=== PATIENT | male | born 1950 | race Caucasian/White ===

== ENCOUNTER 2016-09-06 05:42 | Outpatient (CLI) | payer BC ==
[~2016-09-06] VITALS: Ht 188 cm; Wt 107.6 kg
[~2016-09-06 05:42] MED LIST: BISO1TAB3 PO; BISO1TAB39; IBUP-30 PO; LISI5TAB14 PO; WARF5TAB PO
[2016-09-06] MEDS ORDERED: BISO5TAB PO (08:16)
[2016-09-06] MEDS ORDERED: CHOL200014 PO (08:16)
[2016-09-06] MEDS ORDERED: WARF3TAB PO (08:16)
== END 2016-09-06 08:46 ==
LOC: PREOP 05:42
PROVIDERS: ATTEND Surgery
DX: Z01.818 Encounter for other preprocedural examination (principal); Z12.11 Encounter for screening for malignant neoplasm of colon

== ENCOUNTER 2016-09-09 07:10 | Day surgery (SDC) | payer BC ==
[~2016-09-09] VITALS: Ht 188 cm; Wt 107.6 kg
[~2016-09-09 07:10] MED LIST changes: +BISO5TAB PO; +CHOL200014 PO; +WARF3TAB PO
[2016-09-09 07:59] VITALS: BP 136/85
[2016-09-09] MEDS ORDERED: NS IV 500 ML 500 ML IV PRN (08:00)
[2016-09-09] MEDS ORDERED: fentaNYL INJECTION 100 MCG/2 ML AMP ONE ×2 (09:25)
[2016-09-09] MEDS ORDERED: MIDAZOLAM 2 MG/2 ML (VERSED) VIAL ONE ×4 (09:25→09:26)
[2016-09-09] MEDS: fentaNYL INJECTION 100 MCG/2 ML AMP IVP PRN ×2 (09:38→09:40)
[2016-09-09] MEDS: MIDAZOLAM 2 MG/2 ML (VERSED) VIAL IVP PRN ×2 (09:39→09:42)
--- NOTE | 2016-09-09 09:40 | History & Physicial ---
History of Present Illness History of Present Illness Reason for visit/HPI to undergo screening colonoscopy. No family history of colon cancer Date of Admission Date Seen by Provider: Sep 09, 2016 Time Seen by Provider: 09:01 I consulted on this patient on 09/09/16 09:38 Attending Physician Cari Marquis MD Admitting Physician Laron Kuo MD Consult Allergies and Home Medications Allergies Coded Allergies: NKANo Known Allergies (Verified Allergy, Mild, 04/02/06) Home Medications Bisoprolol Fumarate 5 Mg Tablet, 5 MG PO DAILY, (Reported) Cholecalciferol (Vitamin D3) 2,000 Unit Tablet, 2,000 UNIT PO DAILY, (Reported) Warfarin Sodium 3 Mg Tablet, 3 MG PO DAILY, (Reported) Past Ifsqtcz-Npsdjk-Dslbkf Hx Patient Social History Marrital Status: Employed/Student: employed Alcohol Use: Rarely Uses Recreational Drug Use: No Smoking Status: Never a Smoker Recent Foreign Travel: No Contact w/other who traveled: No Recent Hopitalizations: No Recent Infectious Disease Expo: No Immunizations Up To Date Tetanus Booster (TDap): Unknown Seasonal Allergies Seasonal Allergies: No Surgeries HX Surgeries: Yes (skin CA removed; rt hip ORIF 2006) Surgeries: Orthopedic Respiratory Hx Respiratory Disorders: Yes (post-op PE 2006) Cardiovascular Hx Cardiovascular Disorders: Yes Cardiac Disorders: Deep Vein Thrombosis, Hypertension Neurological Hx Neurological Disorders: No Reproductive System Hx Reproductive Disorders: No Sexually Transmitted Disease: No HIV/AIDS: No Genitourinary Hx Genitourinary Disorders: No Gastrointestinal Hx Gastrointestinal Disorders: No Musculoskeletal Hx Musculoskeletal Disorders: Yes Musculoskeletal Disorders: Fractures Endocrine Hx Endocrine Disorders: No HEENT HX ENT Disorders: No Cancer Hx Cancer: Yes (basal cell removed from mid chest 1997) Cancer: Skin Psychosocial Hx Psychiatric Problems: No Integumentary HX Skin/Integumentary Disorder: No Blood Transfusions Hx Blood Disorders: No Family Medical History Family Hx: Diabetes mellitus 19 FATHER, Onset:Unknown G8 BROTHER, Onset:Unknown G8 BROTHER, Onset:Unknown G8 BROTHER, Onset:Unknown FH: CAD (coronary artery disease) 19 MOTHER, Onset:Unknown FH: renal cell carcinoma 19 MOTHER, Onset:60 years & older Hypertension 19 MOTHER, Onset:Unknown Neoplasm of central nervous system G8 BROTHER, Onset:Unknown Parkinson's disease 19 MOTHER, Onset:60 years & older Constitutional: no symptoms reported EENTM: no symptoms reported Respiratory: no symptoms reported Cardiovascular: no symptoms reported Gastrointestinal: no symptoms reported Genitourinary: no symptoms reported Musculoskeletal: joint pain Psychiatric/Neurological: No Symptoms Reported Physical Exam Vital Signs Vital Sign - Last 12Hours 09/09/16 07:59 Temp 98.2 Pulse 59 Resp 16 B/P (MAP) 136/85 Pulse Ox 93 O2 Delivery Room Air Capillary Refill : General Appearance: No Apparent Distress HEENT: Normal ENT Inspection Neck: Normal Inspection Respiratory: Lungs Clear Cardiovascular: Regular Rate, Rhythm Gastrointestinal: Non Tender, Soft Rectal: Deferred Extremity: Normal Inspection Neurologic/Psychiatric: Alert, Oriented x3 Skin: Warm/Dry Assessment/Plan Assessment and Plan gentleman for screening colonoscopy. Discussed in detail. We will proceed Problems: CARI MARQUIS MD Sep 09, 2016 9:40 am
--- NOTE | 2016-09-09 09:41 | Conscious Sedation/ASA ---
Conscious Sedation Pre-Proced Time Reviewed: 09:40 ASA Class: 2 Airway Mallampati Classification: (quileute appropriate class) I. II. III, IV Lungs Heart ASA score ASA 1: a normal healthy patient ASA 2: a patient with a mild systemic disease (mid diabetes, controlled hypertension, obesity ASA 3: a patient with a severe systemic disease that limits activity (angina , COPD, prior Myocardial infarction) ASA 4: a patient with an incapacitating disease that is a constant threat to life (CHF, renal failure) ASA 5: a moribund patient not expected to survive 24 hrs. (ruptured aneurysm) ASA 6: a declared brain patient whose organs are being harvested. For emergent operations, add the letter E after the classification Grade 2 Sedation Plan: Discussed options with patient/fam Note The patient is an appropriate candidate to undergo the planned procedure, sedation, and anesthesia. The patient immediately re-assessed prior to indication. CARI MARQUIS MD Sep 09, 2016 9:41 am
--- NOTE | 2016-09-09 10:01 | Discharge Inst-Simple/Standard ---
Discharge Inst-Standard Discharge Medications New, Converted or Re-Newed RX: Other Patient Instructions/Follow Up Plan of Care/Instructions/FU: repeat colonoscopy in 2 years Activity as Tolerated: Yes Discharge Diet: No Restrictions CARI MARQUIS MD Sep 09, 2016 10:01 am
--- NOTE | 2016-09-09 10:01 | Endo Procedure Record ---
Endo Procedure Report Date of Procedure Sep 09, 2016 Surgeon (s) CARI MARQUIS MD Post Procedure/Op Diagnosis 1. sigmoid diverticulosis 2. 4 mm sessile polyp at the mid ascending colon Procedure Performed 1.colonoscopy to cecum 2.snare polypectomy Description of Procedure Anesthesia Type: Conscious Sedation Specimen(s) collected/removed right colon polyp Description of the Procedure Indication for procedure: This gentleman came in for screening colonoscopy. He denied any family history of colon cancer or polyps. Informed consent was obtained after reviewing the procedure in detail. Description of the procedure: He was placed in left lateral decubitus position and his vital signs were monitored. Conscious sedation was achieved using Versed and fentanyl. Digital rectal examination was unremarkable.Colonoscope was then introduced into the rectum and advanced all the cecum. Scope was then withdrawn slowly and the mucosa examined in a systematic fashion. The quality of bowel preparation was excellent. Findings: 1.sigmoid diverticulosis 2. 4 mm sessile polyp at the mid descending colon, that was snared and retrieved. hhe tolerated the procedure well and was taken to the nursing area in a stable condition Impression; Screening colonoscopy. 4 mm right colon polyp excised. Recommend repeating 2 years. Copies To: JESSENIA ZEPEDA MD, XAVIER M MD Sep 09, 2016 10:01 am
[2016-09-09 10:20] VITALS: BP 115/68
[2016-09-09 10:50] VITALS: BP 109/72
[2016-09-09 11:00] VITALS: BP 109/72
== END 2016-09-09 11:00 | disposition home or self-care (01) ==
LOC: ENDO 07:10
PROVIDERS: ATTEND Surgery
DX: Z12.11 Encounter for screening for malignant neoplasm of colon (principal); K63.5 Polyp of colon; K57.30 Diverticulosis of large intestine without perforation or abscess without bleeding; I10 Essential (primary) hypertension; Z86.718 Personal history of other venous thrombosis and embolism

== ENCOUNTER 2017-06-03 21:42 | Inpatient (IN) | payer MEDICARE, OTHER ==
[~2017-06-03] VITALS: Ht 188 cm; Wt 99.3 kg
--- OUTSIDE RECORDS SUMMARY | 2017-06-03 21:48 | XMS REPORT | Continuity of Care Document ---
Author Author [facility] Organization [facility] Address Unknown Phone Unavailable Allergies Active Description Code Type Severity Reaction Onset Reported/Identified Relationship to Patient Clinical Status Yes nKA nKA Mild N/A 03/30/2006 Yes NKANo Known Allergies NKA Miscellaneous Allergy Mild N/A 04/02/2006 Medications There is no data. Problems Date Dx Coded Attending Type Code Diagnosis Diagnosed By 06/09/2014 YOANA WISE MD Ot 401.9 HYPERTENSION NOS 06/09/2014 YOANA WISE MD Ot 415.19 OTH PULMON EMBOLISM/INFARCT 06/09/2014 YOANA WISE MD Ot 787.91 DIARRHEA 06/09/2014 YOANA WISE MD Ot 799.02 HYPOXEMIA 06/09/2014 YOANA WISE MD Ot V10.83 HX-SKIN MALIGNANCY NEC 06/09/2014 YOANA WISE MD Ot V12.51 HX-VENOUS THROMBOSIS EMBOLISM 09/06/2016 CARI MARQUIS MD Ot Z01.818 ENCOUNTER FOR OTHER PREPROCEDURAL EXAMIN 09/06/2016 CARI MARQUIS MD Ot Z12.11 ENCOUNTER FOR SCREENING FOR MALIGNANT NE 09/09/2016 CARI MARQUIS MD Ot I10 ESSENTIAL (PRIMARY) HYPERTENSION 09/09/2016 CARI MARQUIS MD Ot K57.30 DVRTCLOS OF LG INT W/O PERFORATION OR AB 09/09/2016 CARI MARQUIS MD Ot K63.5 POLYP OF COLON 09/09/2016 CARI MARQUIS MD Ot Z12.11 ENCOUNTER FOR SCREENING FOR MALIGNANT NE 09/09/2016 CARI MARQUIS MD Ot Z86.718 PERSONAL HISTORY OF OTHER VENOUS THROMBO 09/10/2016 CARI MARQUIS MD Ot I10 ESSENTIAL (PRIMARY) HYPERTENSION 09/10/2016 CARI MARQUIS MD Ot K57.30 DVRTCLOS OF LG INT W/O PERFORATION OR AB 09/10/2016 CARI MARQUIS MD Ot K63.5 POLYP OF COLON 09/10/2016 CARI MARQUIS MD Ot Z12.11 ENCOUNTER FOR SCREENING FOR MALIGNANT NE 09/10/2016 CARI MARQUIS MD Ot Z86.718 PERSONAL HISTORY OF OTHER VENOUS THROMBO Procedures There is no data. Results There is no data. Encounters ACCT No. Visit Date/Time Discharge Status Pt. Type Provider Facility Loc./Unit Complaint [id number] 09/09/2016 07:10:00 09/09/2016 11:00:00 DIS Outpatient CARI MARQUIS MD [facility] ENDO SCREENING [id number] 09/06/2016 05:42:00 09/06/2016 08:46:00 DIS Outpatient CARI MARQUIS MD [facility] PREOP COLONSCOPY [id number] 06/06/2014 02:04:00 06/09/2014 10:30:00 DIS Inpatient YOANA WISE MD [facility] SURGICAL MULTIPLE PULMONARY EMBOLISM
--- NOTE | 2017-06-03 22:27 | ED Abdominal Pain ---
General Chief Complaint: Abdominal/GI Problems Stated Complaint: LOWER ABD PAIN Nursing Triage Note: LEFT SIDED DULL ABDOMINAL PAIN SINCE THIS AM. DENIES INJURY. Sepsis Screen: No Definite Risk Source of Information: Patient Exam Limitations: No Limitations History of Present Illness Date Seen by Provider: Jun 03, 2017 Time Seen by Provider: 22:25 Initial Comments To ER with left lower quadrant abdominal pain since this morning. This was very mild throughout the day and intermittent. About 6 PM pain became more intense presents to the emergency room now. He did have some nausea briefly but none currently. No changes in bowels. No dysuria. No fevers or chills. No history of this. He is on warfarin for history of DVT/PE Timing/Duration: 12 Hours Severity/Quality: Moderate Associated Symptoms: No Fever/Chills, Nausea/Vomiting (nausea without vomiting) Allergies and Home Medications Allergies Coded Allergies: NKANo Known Allergies (Verified Allergy, Mild, 04/02/06) Home Medications Bisoprolol Fumarate 5 Mg Tablet, 5 MG PO DAILY, (Reported) Cholecalciferol (Vitamin D3) 2,000 Unit Tablet, 2,000 UNIT PO DAILY, (Reported) Warfarin Sodium 3 Mg Tablet, 3 MG PO DAILY, (Reported) Patient Home Medication List Home Medication List Reviewed: Yes Review of Systems Constitutional: see HPI, No chills, No fever EENTM: No Symptoms Reported Respiratory: No Symptoms Reported Cardiovascular: No Symptoms Reported Gastrointestinal: See HPI, Abdominal Pain, Denies Constipated, Denies Diarrhea , Nausea, Denies Vomiting Genitourinary: See HPI, Denies Burning, Denies Discharge, Denies Drainage, Denies Frequency, Denies Flank Pain, Denies Hematuria Musculoskeletal: no symptoms reported Skin: no symptoms reported Psychiatric/Neurological: No Symptoms Reported Past Xhmwpvu-Lwbbgr-Lnlzhi Hx Patient Social History Alcohol Use: Denies Use Recreational Drug Use: No Smoking Status: Never a Smoker 2nd Hand Smoke Exposure: No Recent Foreign Travel: No Contact w/Someone Who Travel: No Recent Infectious Disease Expo: No Recent Hopitalizations: No Immunizations Up To Date Tetanus Booster (TDap): Unknown Seasonal Allergies Seasonal Allergies: No Past Medical History Surgeries: Yes (skin CA removed; rt hip ORIF 2006) Orthopedic Respiratory: Yes (post-op PE 2006) Pulmonary Embolism Cardiac: Yes Deep Vein Thrombosis, Hypertension Neurological: No Reproductive Disorders: No Sexually Transmitted Disease: No HIV/AIDS: No Genitourinary: No Gastrointestinal: No Musculoskeletal: Yes Arthritis, Fractures Endocrine: No HEENT: No Cancer: Yes (basal cell removed from mid chest 1997) Skin Psychosocial: No Integumentary: No Blood Disorders: No Family Medical History Diabetes mellitus 19 FATHER, Onset:Unknown G8 BROTHER, Onset:Unknown G8 BROTHER, Onset:Unknown G8 BROTHER, Onset:Unknown FH: CAD (coronary artery disease) 19 MOTHER, Onset:Unknown FH: renal cell carcinoma 19 MOTHER, Onset:60 years & older Hypertension 19 MOTHER, Onset:Unknown Neoplasm of central nervous system G8 BROTHER, Onset:Unknown Parkinson's disease 19 MOTHER, Onset:60 years & older Physical Exam Vital Signs Vital Signs - First Documented 06/03/17 22:01 Temp 96.8 Pulse 70 Resp 18 B/P (MAP) 145/86 (105) Pulse Ox 97 O2 Delivery Room Air Capillary Refill : Less Than 3 Seconds General Appearance: WD/WN, no apparent distress HEENT: PERRL/EOMI, normal ENT inspection Neck: non-tender, full range of motion Respiratory: no respiratory distress, no accessory muscle use Cardiovascular: regular rate, rhythm, no murmur Gastrointestinal: normal bowel sounds, non tender, soft, No guarding, No rebound, No tenderness, other (he is nontender to palpation but states that the pain worsens when he stands up straight.) Extremities: normal range of motion, non-tender Neurologic/Psychiatric: alert, normal mood/affect, oriented x 3 Skin: normal color, warm/dry Progress/Results/Core Measures Lab Results Laboratory Tests Test 06/03/17 22:20 06/03/17 22:22 Range/Units White Blood Count 9.6 4.3-11.0 10^3/uL Red Blood Count 5.49 4.35-5.85 10^6/uL Hemoglobin 17.1 13.3-17.7 G/DL Hematocrit 50 40-54 % Mean Corpuscular Volume 90 80-99 FL Mean Corpuscular Hemoglobin 31 25-34 PG Mean Corpuscular Hemoglobin Concent 35 32-36 G/DL Red Cell Distribution Width 13.3 10.0-14.5 % Platelet Count 221 130-400 10^3/uL Mean Platelet Volume 10.2 7.4-10.4 FL Neutrophils (%) (Auto) 71 42-75 % Lymphocytes (%) (Auto) 17 12-44 % Monocytes (%) (Auto) 11 0-12 % Eosinophils (%) (Auto) 1 0-10 % Basophils (%) (Auto) 1 0-10 % Neutrophils # (Auto) 6.8 1.8-7.8 X 10^3 Lymphocytes # (Auto) 1.7 1.0-4.0 X 10^3 Monocytes # (Auto) 1.0 0.0-1.0 X 10^3 Eosinophils # (Auto) 0.1 0.0-0.3 10^3/uL Basophils # (Auto) 0.1 0.0-0.1 10^3/uL Prothrombin Time 25.5 H 12.2-14.7 SEC INR Comment 2.3 H 0.8-1.4 Sodium Level 138 135-145 MMOL/L Potassium Level 4.6 3.6-5.0 MMOL/L Chloride Level 103 98-107 MMOL/L Carbon Dioxide Level 23 21-32 MMOL/L Anion Gap 12 5-14 MMOL/L Blood Urea Nitrogen 17 7-18 MG/DL Creatinine 1.13 0.60-1.30 MG/DL Estimat Glomerular Filtration Rate > 60 BUN/Creatinine Ratio 15 Glucose Level 117 H 70-105 MG/DL Calcium Level 9.5 8.5-10.1 MG/DL Total Bilirubin 0.9 0.1-1.0 MG/DL Aspartate Amino Transf (AST/SGOT) 31 5-34 U/L Alanine Aminotransferase (ALT/SGPT) 26 0-55 U/L Alkaline Phosphatase 59 40-136 U/L Total Protein 7.8 6.4-8.2 GM/DL Albumin 4.2 3.2-4.5 GM/DL Urine Color YELLOW Urine Clarity CLEAR Urine pH 5 5-9 Urine Specific [place] 1.025 H 1.016-1.022 Urine Protein NEGATIVE NEGATIVE Urine Glucose (UA) NEGATIVE NEGATIVE Urine Ketones NEGATIVE NEGATIVE Urine Nitrite NEGATIVE NEGATIVE Urine Bilirubin NEGATIVE NEGATIVE Urine Urobilinogen NORMAL NORMAL MG/DL Urine Leukocyte Esterase 1+ H NEGATIVE Urine RBC (Auto) 2+ H NEGATIVE Urine RBC 0-2 /HPF Urine WBC RARE /HPF Urine Crystals NONE /LPF Urine Bacteria NEGATIVE /HPF Urine Casts NONE /LPF Urine Mucus SMALL H /LPF Urine Culture Indicated NO My Orders Orders - JOHN ZAMORA APRN Saline Lock/Iv-Start (06/03/17 22:20) Cbc With Automated Diff (06/03/17 22:20) Comprehensive Metabolic Panel (06/03/17 22:20) Ua Culture If Indicated (06/03/17 22:20) Ct Abdomen/Pelvis Wo (06/03/17 22:20) Protime With Inr (06/03/17 22:39) Vital Signs/I&O 06/03/17 22:01 Temp 96.8 Pulse 70 Resp 18 B/P (MAP) 145/86 (105) Pulse Ox 97 O2 Delivery Room Air Blood Pressure Mean: 105 Departure Communication (Admissions) Time/Spoke to Admitting Phy: 23:08 CT scan shows a small bowel obstruction with the left midabdomen transition point. Dr. Buck has seen the patient in the emergency room. I spoke with Dr. Zepeda who agrees to admit the patient. We will do nasogastric tube and small bowel follow-through morning. Impression Primary Impression: Small bowel obstruction Disposition: ADMITTED INPATIENT Condition: Stable Admissions Decision to Admit Reason: Admit from ER (General) Decision to Admit/Date: Jun 03, 2017 Time/Decision to Admit Time: 22:40 Departure-Patient Inst. Referrals: JESSENIA ZEPEDA MD (PCP) Primary Care Physician JOHN ZAMORA APRN Jun 03, 2017 22:27
[2017-06-03 22:28] LABS: BASOPHILS # (AUTO) 0.1 10^3/uL (0.0-0.1); BASOPHILS % (AUTO) 1 % (0-10); EOSINOPHILS # (AUTO) 0.1 10^3/uL (0.0-0.3); EOSINOPHILS % (AUTO) 1 % (0-10); HEMATOCRIT 50 % (40-54); HEMOGLOBIN 17.1 G/DL (13.3-17.7); LYMPHOCYTES # (AUTO) 1.7 X 10^3 (1.0-4.0); LYMPHOCYTES % (AUTO) 17 % (12-44); MEAN CORPUSCULAR HEMOGLOBIN 31 PG (25-34); MEAN CORPUSCULAR HGB CONC 35 G/DL (32-36); MEAN CORPUSCULAR VOLUME 90 FL (80-99); MEAN PLATELET VOLUME 10.2 FL (7.4-10.4); MONOCYTES % (AUTO) 11 % (0-12); NEUTROPHILS # (AUTO) 6.8 X 10^3 (1.8-7.8); NEUTROPHILS % (AUTO) 71 % (42-75); PLATELET COUNT 221 10^3/uL (130-400); RED BLOOD COUNT 5.49 10^6/uL (4.35-5.85); RED CELL DISTRIBUTION WIDTH 13.3 % (10.0-14.5); WHITE BLOOD COUNT 9.6 10^3/uL (4.3-11.0)
[2017-06-03 22:29] LABS: BILIRUBIN,URINE NEGATIVE (NEGATIVE); CLARITY,URINE CLEAR; COLOR,URINE YELLOW; GLUCOSE, URINE (UA) NEGATIVE (NEGATIVE); KETONES,URINE NEGATIVE (NEGATIVE); LEUKOCYTE ESTERASE ,URINE 1+ (NEGATIVE); NITRITE,URINE NEGATIVE (NEGATIVE); PH,URINE 5 (5-9); PROTEIN,URINE NEGATIVE (NEGATIVE); UROBILINOGEN,URINE NORMAL (NORMAL)
[2017-06-03 22:37] LABS: BACTERIA,URINE NEGATIVE /HPF; RBC,URINE 0-2 /HPF; WBC,URINE RARE /HPF
[2017-06-03 22:50] LABS: INR 2.3 (0.8-1.4); PROTHROMBIN TIME PATIENT 25.5 SEC (12.2-14.7)
[2017-06-03 23:06] LABS: ALANINE AMINOTRANSFERASE 26 U/L (0-55); ALBUMIN 4.2 GM/DL (3.2-4.5); ALKALINE PHOSPHATASE 59 U/L (40-136); BILIRUBIN,TOTAL 0.9 MG/DL (0.1-1.0); BUN/CREATININE RATIO 15; CALCIUM 9.5 MG/DL (8.5-10.1); CARBON DIOXIDE 23 MMOL/L (21-32); CHLORIDE 103 MMOL/L (98-107); CREATININE SERUM 1.13 MG/DL (0.60-1.30); GFR ESTIMATED > 60; GLUCOSE 117 MG/DL (70-105); POTASSIUM 4.6 MMOL/L (3.6-5.0); SODIUM 138 MMOL/L (135-145); TOTAL PROTEIN 7.8 GM/DL (6.4-8.2)
--- NOTE | 2017-06-03 23:08 | Consultation ---
History of Present Illness History of Present Illness Patient Consulted On(anton/time) 06/03/17 23:06 Date Seen by Provider: Jun 03, 2017 Time Seen by Provider: 23:06 History of Present Illness Seen in emergency Dept. Consult requested by Dr. Kuo. She is a 66-year-old male who began having abdominal pain this evening. Pain is primarily in the left lower quadrant which she states is moderate pain and more discomfort. Patient has not been passing any flatus today. He is feeling nauseous and has not had any emesis though. Patient states overall he just has not been feeling well. Patient has CT scan consistent with a small bowel obstruction and fat-containing inguinal hernias. Patient denies any fever sweats chills shortness of breath or chest pain. Patient is on Coumadin secondary to history of pulmonary embolism. Allergies and Home Medications Allergies Coded Allergies: NKANo Known Allergies (Verified Allergy, Mild, 04/02/06) Home Medications Bisoprolol Fumarate/Hctz 1 Each Tablet, 1 TAB PO DAILY, (Reported) Cholecalciferol (Vitamin D3) 2,000 Unit Tablet, 2,000 UNIT PO DAILY, (Reported) Warfarin Sodium 3 Mg Tablet, 3 MG PO DAILY, (Reported) Patient Home Medication List Home Medication List Reviewed: Yes Past Aqxqqys-Xoyjvm-Qlsbmt Hx Patient Social History Alcohol Use: Denies Use Recreational Drug Use: No Smoking Status: Never a Smoker 2nd Hand Smoke Exposure: No Recent Foreign Travel: No Contact w/Someone Who Travel: No Recent Infectious Disease Expo: No Recent Hopitalizations: No Immunizations Up To Date Tetanus Booster (TDap): Unknown Seasonal Allergies Seasonal Allergies: No Surgeries History of Surgeries: Yes (skin CA removed; rt hip ORIF 2006) Surgeries: Orthopedic Respiratory History of Respiratory Disorde: Yes (post-op PE 2006) Respiratory Disorders: Pulmonary Embolism Cardiovascular History of Cardiac Disorders: Yes Cardiac Disorders: Deep Vein Thrombosis, Hypertension Neurological History of Neurological Disord: No Reproductive System Hx Reproductive Disorders: No Sexually Transmitted Disease: No HIV/AIDS: No Genitourinary History of Genitourinary Disor: No Gastrointestinal History of Gastrointestinal Di: No Musculoskeletal History of Musculoskeletal Dis: Yes Musculoskeletal Disorders: Arthritis, Fractures Endocrine History of Endocrine Disorders: No HEENT History of HEENT Disorders: No Cancer History of Cancer: Yes (basal cell removed from mid chest 1997) Cancer: Skin Psychosocial History of Psychiatric Problem: No Integumentary History of Skin or Integumenta: No Blood Transfusions History of Blood Disorders: No Family Medical History Significant Family History: No Pertinent Family Hx Family Medial History: Diabetes mellitus 19 FATHER, Onset:Unknown G8 BROTHER, Onset:Unknown G8 BROTHER, Onset:Unknown G8 BROTHER, Onset:Unknown FH: CAD (coronary artery disease) 19 MOTHER, Onset:Unknown FH: renal cell carcinoma 19 MOTHER, Onset:60 years & older Hypertension 19 MOTHER, Onset:Unknown Neoplasm of central nervous system G8 BROTHER, Onset:Unknown Parkinson's disease 19 MOTHER, Onset:60 years & older Review of Systems-General EENTM: no symptoms reported Respiratory: no symptoms reported Cardiovascular: no symptoms reported Gastrointestinal: see HPI Genitourinary: no symptoms reported Musculoskeletal: no symptoms reported Skin: no symptoms reported Psychiatric/Neurological: No Symptoms Reported Physical Exam-General Problems Physical Exam Vital Signs Vital Signs - First Documented 06/03/17 22:01 Temp 96.8 Pulse 70 Resp 18 B/P (MAP) 145/86 (105) Pulse Ox 97 O2 Delivery Room Air Capillary Refill : Less Than 3 Seconds General Appearance: no apparent distress HEENT: PERRL/EOMI, normal ENT inspection Neck: non-tender, supple Respiratory: no respiratory distress, no accessory muscle use Cardiovascular: regular rate, rhythm Gastrointestinal: tenderness (Slight in the left lower quadrant, small hernias are reducible) Back: normal inspection Extremities: non-tender, normal inspection Neurologic/Psychiatric: senior data developer II-XII nml as tested, no motor/sensory deficits, alert, normal mood/affect, oriented x 3 Skin: normal color, warm/dry Lymphatic: no adenopathy Data Review Labs Laboratory Tests 06/03/17 22:20: White Blood Count 9.6, Red Blood Count 5.49, Hemoglobin 17.1, Hematocrit 50, Mean Corpuscular Volume 90, Mean Corpuscular Hemoglobin 31, Mean Corpuscular Hemoglobin Concent 35, Red Cell Distribution Width 13.3, Platelet Count 221, Mean Platelet Volume 10.2, Neutrophils (%) (Auto) 71, Lymphocytes (%) (Auto) 17 , Monocytes (%) (Auto) 11, Eosinophils (%) (Auto) 1, Basophils (%) (Auto) 1, Neutrophils # (Auto) 6.8, Lymphocytes # (Auto) 1.7, Monocytes # (Auto) 1.0, Eosinophils # (Auto) 0.1, Basophils # (Auto) 0.1, Prothrombin Time 25.5H, INR Comment 2.3H 06/03/17 22:22: Urine Color YELLOW, Urine Clarity CLEAR, Urine pH 5, Urine Specific [place] 1.025H, Urine Protein NEGATIVE, Urine Glucose (UA) NEGATIVE, Urine Ketones NEGATIVE, Urine Nitrite NEGATIVE, Urine Bilirubin NEGATIVE, Urine Urobilinogen NORMAL, Urine Leukocyte Esterase 1+H, Urine RBC (Auto) 2+H, Urine RBC 0-2, Urine WBC RARE, Urine Crystals NONE, Urine Bacteria NEGATIVE, Urine Casts NONE, Urine Mucus SMALLH, Urine Culture Indicated NO Assessment/Plan Assessment/Plan Assessment/Plan left lower quadrant abdominal pain nausea small bowel obstruction Anticoagulation-hold ng tube ligabbie small bowel follow through in am npo iv fluids ANDRZEJ ARREGUIN DO Jun 03, 2017 23:08
[2017-06-04 00:10] VITALS: BP 142/87
[2017-06-04] MEDS ORDERED: NS W/KCL 20 MEQ/L 1,000 ML IV ONE (00:21)
[2017-06-04] MEDS ORDERED: ONDANSETRON 4 MG/2 ML (SDV) Z0FRAN IV PRN ×2 (02:15→08:00)
[2017-06-04] MEDS ORDERED: NS W/KCL 20 MEQ/L 1,000 ML IV SCH (02:15)
[2017-06-04] MEDS ORDERED: fentaNYL INJECTION 100 MCG/2 ML AMP IV PRN ×3 (02:15→08:00)
--- OUTSIDE RECORDS SUMMARY | 2017-06-04 02:15 | XMS REPORT | Continuity of Care Document ---
Author Author [facility] Organization [facility] Address Unknown Phone Unavailable Allergies Active Description [...] W/O PERFORATION OR AB 09/10/2016 CARI MARQUIS MD, Ot K63.5 POLYP OF COLON 09/10/2016 CARI MARQUIS MD, Ot Z12.11 ENCOUNTER FOR SCREENING FOR MALIGNANT NE 09/10/2016 CARI MARQUIS MD, Ot Z86.718 PERSONAL HISTORY OF OTHER VENOUS THROMBO Procedures There is no data. Results Test Result Range Complete blood count (CBC) with automated white blood cell (WBC) differential - 06/03/17 22:20 Blood leukocytes automated count (number/volume) 9.6 10*3/uL 4.3-11.0 Blood erythrocytes automated count (number/volume) 5.49 10*6/uL 4.35-5.85 Venous blood hemoglobin measurement (mass/volume) 17.1 g/dL 13.3-17.7 Blood hematocrit (volume fraction) 50 % 40-54 Automated erythrocyte mean corpuscular volume 90 [foz_us] 80-99 Automated erythrocyte mean corpuscular hemoglobin (mass per erythrocyte) 31 pg 25-34 Automated erythrocyte mean corpuscular hemoglobin concentration measurement ( mass/volume) 35 g/dL 32-36 Automated erythrocyte distribution width ratio 13.3 % 10.0-14.5 Automated blood platelet count (count/volume) 221 10*3/uL 130-400 Automated blood platelet mean volume measurement 10.2 [foz_us] 7.4-10.4 Automated blood neutrophils/100 leukocytes 71 % 42-75 Automated blood lymphocytes/100 leukocytes 17 % 12-44 Blood monocytes/100 leukocytes 11 % 0-12 Automated blood eosinophils/100 leukocytes 1 % 0-10 Automated blood basophils/100 leukocytes 1 % 0-10 Blood neutrophils automated count (number/volume) 6.8 10*3 1.8-7.8 Blood lymphocytes automated count (number/volume) 1.7 10*3 1.0-4.0 Blood monocytes automated count (number/volume) 1.0 10*3 0.0-1.0 Automated eosinophil count 0.1 10*3/uL 0.0-0.3 Automated blood basophil count (count/volume) 0.1 10*3/uL 0.0-0.1 PT panel in platelet poor plasma by coagulation assay - 06/03/17 22:20 Prothrombin time (PT) in platelet poor plasma by coagulation assay 25.5 s 12.2-14.7 INR in platelet poor plasma or blood by coagulation assay 2.3 0.8-1.4 Comprehensive metabolic panel - 06/03/17 22:20 Serum or plasma sodium measurement (moles/volume) 138 mmol/L 135-145 Serum or plasma potassium measurement (moles/volume) 4.6 mmol/L 3.6-5.0 Serum or plasma chloride measurement (moles/volume) 103 mmol/L 98-107 Carbon dioxide 23 mmol/L 21-32 Serum or plasma anion gap determination (moles/volume) 12 mmol/L 5-14 Serum or plasma urea nitrogen measurement (mass/volume) 17 mg/dL 7-18 Serum or plasma creatinine measurement (mass/volume) 1.13 mg/dL 0.60-1.30 Serum or plasma urea nitrogen/creatinine mass ratio 15 NRG Serum or plasma creatinine measurement with calculation of estimated glomerular filtration rate > NRG Serum or plasma glucose measurement (mass/volume) 117 mg/dL 70-105 Serum or plasma calcium measurement (mass/volume) 9.5 mg/dL 8.5-10.1 Serum or plasma total bilirubin measurement (mass/volume) 0.9 mg/dL 0.1-1.0 Serum or plasma alkaline phosphatase measurement (enzymatic activity/volume) 59 U/L 40-136 Serum or plasma aspartate aminotransferase measurement (enzymatic activity/ volume) 31 U/L 5-34 Serum or plasma alanine aminotransferase measurement (enzymatic activity/volume ) 26 U/L 0-55 Serum or plasma protein measurement (mass/volume) 7.8 g/dL 6.4-8.2 Serum or plasma albumin measurement (mass/volume) 4.2 g/dL 3.2-4.5 Complete urinalysis with reflex to culture - 06/03/17 22:22 Urine color determination YELLOW NRG Urine clarity determination CLEAR NRG Urine pH measurement by test strip 5 5-9 Specific gravity of urine by test strip 1.025 1.016- 1.022 Urine protein assay by test strip, semi-quantitative NEGATIVE NEGATIVE Urine glucose detection by automated test strip NEGATIVE NEGATIVE Erythrocytes detection in urine sediment by light microscopy 2+ NEGATIVE Urine ketones detection by automated test strip NEGATIVE NEGATIVE Urine nitrite detection by test strip NEGATIVE NEGATIVE Urine total bilirubin detection by test strip NEGATIVE NEGATIVE Urine urobilinogen measurement by automated test strip (mass/volume) NORMAL NORMAL Urine leukocyte esterase detection by dipstick 1+ NEGATIVE Automated urine sediment erythrocyte count by microscopy (number/high power field) [HPF] NRG Automated urine sediment leukocyte count by microscopy (number/high power field ) RARE NRG Bacteria detection in urine sediment by light microscopy NEGATIVE NRG Crystals detection in urine sediment by light microscopy NONE NRG Casts detection in urine sediment by light microscopy NONE NRG Mucus detection in urine sediment by light microscopy SMALL NRG Complete urinalysis with reflex to culture NO NRG Encounters ACCT No. Visit Date/Time Discharge Status Pt. Type Provider Facility Loc./Unit Complaint [id number] 09/09/2016 07:10:00 09/09/2016 11:00:00 DIS Outpatient CARI MARQUIS MD [facility] ENDO SCREENING [id number] 09/06/2016 05:42:00 09/06/2016 08:46:00 DIS Outpatient CARI MARQUIS MD [facility] PREOP COLONSCOPY [id number] 06/06/2014 02:04:00 06/09/2014 10:30:00 DIS Inpatient YOANA WISE MD [facility] SURGICAL MULTIPLE PULMONARY EMBOLISM [id number] 06/03/2017 22:29:00 Document Registration
[2017-06-04 04:00] VITALS: BP 108/67
[2017-06-04 06:18] LABS: BASOPHILS % (AUTO) 0 % (0-10); EOSINOPHILS # (AUTO) 0.1 10^3/uL (0.0-0.3); EOSINOPHILS % (AUTO) 1 % (0-10); HEMATOCRIT 45 % (40-54); HEMOGLOBIN 15.3 G/DL (13.3-17.7); LYMPHOCYTES % (AUTO) 29 % (12-44); MEAN CORPUSCULAR HEMOGLOBIN 31 PG (25-34); MEAN CORPUSCULAR HGB CONC 34 G/DL (32-36); MEAN CORPUSCULAR VOLUME 91 FL (80-99); MEAN PLATELET VOLUME 10.6 FL (7.4-10.4); MONOCYTES # (AUTO) 1.1 X 10^3 (0.0-1.0); MONOCYTES % (AUTO) 17 % (0-12); NEUTROPHILS # (AUTO) 3.5 X 10^3 (1.8-7.8); NEUTROPHILS % (AUTO) 53 % (42-75); PLATELET COUNT 197 10^3/uL (130-400); RED BLOOD COUNT 4.94 10^6/uL (4.35-5.85); RED CELL DISTRIBUTION WIDTH 13.3 % (10.0-14.5); WHITE BLOOD COUNT 6.7 10^3/uL (4.3-11.0)
[2017-06-04 06:46] LABS: ALANINE AMINOTRANSFERASE 20 U/L (0-55); ALBUMIN 3.5 GM/DL (3.2-4.5); ALKALINE PHOSPHATASE 50 U/L (40-136); BILIRUBIN,TOTAL 0.8 MG/DL (0.1-1.0); BUN/CREATININE RATIO 16; CALCIUM 8.7 MG/DL (8.5-10.1); CARBON DIOXIDE 20 MMOL/L (21-32); CHLORIDE 108 MMOL/L (98-107); CREATININE SERUM 0.99 MG/DL (0.60-1.30); GFR ESTIMATED > 60; GLUCOSE 109 MG/DL (70-105); POTASSIUM 3.9 MMOL/L (3.6-5.0); SODIUM 138 MMOL/L (135-145); TOTAL PROTEIN 6.6 GM/DL (6.4-8.2)
--- NOTE | 2017-06-04 07:16 | Diagnostic Imaging Report ---
PROCEDURE: CT abdomen and pelvis without contrast. TECHNIQUE: Multiple contiguous axial images were obtained through the abdomen and pelvis without the use of intravenous contrast. INDICATION: Left lower quadrant pain COMPARISON: None FINDINGS: The lung bases demonstrate minimal atelectasis. The heart is normal in size. No pericardial effusion is seen. No focal hepatic lesions are identified. The spleen appears normal. The pancreas is unremarkable. The adrenal glands are normal. The kidneys demonstrate no evidence of hydronephrosis or obstructing calculi. Multiple cysts are seen on the right kidney, the largest measuring up to 8.4 cm in greatest dimension at the superior pole. This has a simple appearance. Multiple loops of dilated small bowel are present. The distal small bowel is decompressed, concerning for a small bowel obstruction. There may be a transition point in the lower anterior abdomen (image 80 series 2). There is trace free fluid in the pelvis. The gas seen in the small bowel is thought to be intraluminal rather than intramural. The appendix appears normal. No free air seen. There is marked diverticulosis of the distal colon without diverticulitis. There are fat-containing bilateral inguinal hernias, left greater than right, and there appears to be a portion of the urinary bladder extending into the left inguinal hernia. No acute osseous abnormality is seen. Degenerative changes are noted in the spine. There is prior fixation of the proximal right femur. IMPRESSION: 1. Findings compatible with small bowel obstruction with suspected transition point in the anterior lower abdomen. 2. Large right renal cyst measuring up to 8.4 cm. 3. Marked colonic diverticulosis without diverticulitis. 4. Left inguinal hernia, predominantly containing fat, with a portion of the urinary bladder extending into the hernia. Dictated by: Dictated on workstation # [id number]
--- NOTE | 2017-06-04 07:28 | Diagnostic Imaging Report ---
INDICATION: Nasogastric placement. TECHNIQUE: Single frontal view of the chest. COMPARISON: 06/06/2014 FINDINGS: Lung volumes are mildly low. No focal consolidation is seen. The cardiac silhouette is mildly prominent, likely accentuated by the low lung volumes. The nasogastric tube projects over the stomach. IMPRESSION: 1. The nasogastric tube projects over the stomach. 2. Low lung volumes with no acute pulmonary abnormality seen. Dictated by: Dictated on workstation # [id number]
--- NOTE | 2017-06-04 07:48 | History & Physicial ---
History of Present Illness History of Present Illness Reason for visit/HPI 66-year-old male presents to [facility] emergency department during the evening of June 03, 2017 with generalized abdominal discomfort. He was seen in the office on June 03 and he stated he just didn't feel well. At that point he didn't mention any abdominal complaints and does report he had bowel movement. He did not have any symptoms of fever, sore throat, earache, or cough. He apparently ate spaghetti for his evening meal on June 03, 2017 and had noted more intense pain in the left lower portion of his abdomen. This prompted him to come to [facility] emergency department. He is currently taking warfarin 3 mg daily for history of pulmonary embolism. Date of Admission Jun 03, 2017 at 22:42 Date Seen by Provider: Jun 04, 2017 Time Seen by Provider: 07:15 I consulted on this patient on 06/04/17 07:42 Attending Physician Jessenia Zepeda MD Admitting Physician Jessenia Zepeda MD Consult Allergies and Home Medications Allergies Coded Allergies: PAWANANo Known Allergies (Verified Allergy, Mild, 04/02/06) Home Medications Bisoprolol Fumarate/Hctz 1 Each Tablet, 1 TAB PO DAILY, (Reported) Cholecalciferol (Vitamin D3) 2,000 Unit Tablet, 2,000 UNIT PO DAILY, (Reported) Warfarin Sodium 3 Mg Tablet, 3 MG PO DAILY, (Reported) Patient Home Medication List Home Medication List Reviewed: Yes Past Hfjggjl-Tzismo-[place] Hx Patient Social History Marrital Status: Alcohol Use: Denies Use Recreational Drug Use: No Smoking Status: Never a Smoker 2nd Hand Smoke Exposure: No Physical Abuse Screen: No Sexual Abuse: No Recent Foreign Travel: No Contact w/other who traveled: No Recent Hopitalizations: No Recent Infectious Disease Expo: No Immunizations Up To Date Tetanus Booster (TDap): Unknown Pediatric: Yes Seasonal Allergies Seasonal Allergies: No Surgeries Yes (skin CA removed; rt hip ORIF 2006) Orthopedic Respiratory Yes (post-op PE 2006 & bilateal PE 2014) Currently Using CPAP: No Currently Using BIPAP: No Cardiovascular Yes Deep Vein Thrombosis, Hypertension Neurological No Reproductive System Hx Reproductive Disorders: No Sexually Transmitted Disease: No HIV/AIDS: No Genitourinary No Gastrointestinal No Musculoskeletal Yes Arthritis, Fractures Endocrine History of Endocrine Disorders: No Are Your Blood Sugars Over 250: No HEENT History of HEENT Disorders: No Loss of Vision: Denies Hearing Impairment: Denies Cancer Yes (basal cell removed from mid chest 1997) Skin Did You Recieve Any Treatments: Yes Type of Treatment: Surgical Intervention Cancer Comment: pt states that he frequently has to have skin cancer "spots froze off" Psychosocial History of Psychiatric Problem: No Integumentary History of Skin or Integumenta: Yes (skin ca) Blood Transfusions History of Blood Disorders: No Family Medical History Family Hx: Diabetes mellitus 19 FATHER, Onset:Unknown G8 BROTHER, Onset:Unknown G8 BROTHER, Onset:Unknown G8 BROTHER, Onset:Unknown FH: CAD (coronary artery disease) 19 MOTHER, Onset:Unknown FH: renal cell carcinoma 19 MOTHER, Onset:60 years & older Hypertension 19 MOTHER, Onset:Unknown Neoplasm of central nervous system G8 BROTHER, Onset:Unknown Parkinson's disease 19 MOTHER, Onset:60 years & older Constitutional: see HPI Physical Exam Vital Signs Vital Signs - First Documented 06/03/17 22:01 Temp 96.8 Pulse 70 Resp 18 B/P (MAP) 145/86 (105) Pulse Ox 97 O2 Delivery Room Air Capillary Refill : Less Than 3 Seconds General Appearance: Anxious (Slight) Eyes: Bilateral Eye Normal Inspection HEENT: Moist Mucous Membranes, Other (Currently nasogastric tube in place) Neck: Supple Respiratory: Lungs Clear Cardiovascular: Regular Rate, Rhythm Gastrointestinal: Soft, Abnormal Bowel Sounds (Quiet), Other (Nondistended) Rectal: Deferred Back: Normal Inspection Comments CT abdomen and pelvis performed during the evening of June 03, 2017 was performed. The official report is not on chart currently. ED reports that bowel obstruction is present based upon preliminary reading. Assessment/Plan Assessment and Plan 1. Bowel obstruction-mechanical versus ileus -Dr. Buck has been consult and has seen patient in the emergency department during the evening of June 03, 2017 -Plan is for small bowel follow-through this morning -We'll maintain nasogastric tube as of now. 2. Hypertension history of -We'll reinstate his blood pressure regimen as his oral intake is allowed 3. Pulmonary embolism history of -Will place on Lovenox when surgery agrees Admission Diagnosis 1. Bowel obstruction 2. Hypertension history of 3. Pulmonary embolism history of Admission Status: Inpatient Order (span 2 midnights) Reason for Inpatient Admission: Further evaluation of bowel obstruction Clinical Quality Measures DVT/VTE Risk/Contraindication: Risk Factor Score Per Nursin RFS Level Per Nursing on Admit: 4+=Very High JESSENIA ZEPEDA MD Jun 04, 2017 07:48
[2017-06-04 08:00] VITALS: BP 108/67
[2017-06-04] MEDS ORDERED: CATHETER FLUSH 10 ML SYR IV PRN (08:00)
[2017-06-04] MEDS ORDERED: WARF3TAB56 PO (08:28)
[2017-06-04] MEDS ORDERED: BISO1TAB3 PO (08:28)
[2017-06-04] MEDS: NS W/KCL 20 MEQ/L 1,000 ML IV SCH ×2 (08:45→17:09)
[2017-06-04] MEDS: PANTOPRAZOLE 40 MG/10 ML (PROTONIX) VIAL IV SCH (08:49)
[2017-06-04] MEDS ORDERED: PANTOPRAZOLE 40 MG/10 ML (PROTONIX) VIAL IV SCH (09:00)
[2017-06-04] MEDS ORDERED: DIATRIZOATE MEGLUM/SODIUM 37% 120 ML (GASTROGRAFIN) NG ONE (09:15)
--- NOTE | 2017-06-04 09:25 | Progress Note ---
Subjective Date Seen by Provider: Jun 04, 2017 Time Seen by Provider: 09:20 Subjective/Events-last exam Patient not having any abdominal pain at this time. He is not having any nausea or emesis. NG tube in place. NPO. No new complaints. Denies fever sweats chills shortness of breath or chest pain. Objective Exam Vital Signs Date Time Temp Pulse Resp B/P (MAP) Pulse Ox O2 Delivery O2 Flow Rate FiO2 06/04/17 08:00 99.5 60 18 108/67 (81) 98 Room Air 06/04/17 04:00 99.5 60 18 108/67 (81) 98 Room Air 06/04/17 00:10 98.5 66 16 142/87 (105) 95 Room Air 06/04/17 00:10 Room Air 06/03/17 23:50 98.2 61 14 132/97 (105) 97 Room Air 06/03/17 22:01 96.8 70 18 145/86 (105) 97 Room Air I & O 06/04/17 07:00 Intake Total 0 ml Output Total 400 ml Balance -400 ml Capillary Refill : Less Than 3 Seconds General Appearance: No Apparent Distress HEENT: Moist Mucous Membranes, Other (Currently nasogastric tube in place) Neck: Supple Respiratory: Chest Non Tender, No Accessory Muscle Use, No Respiratory Distress Cardiovascular: Regular Rate, Rhythm Gastrointestinal: normal bowel sounds, non tender, soft, distended (slight); No guarding, No rebound, No tenderness Neurologic/Psychiatric: Alert, Oriented x3 Skin: Normal Color, Warm/Dry Lymphatic: No Adenopathy Results Lab Laboratory Tests 06/03/17 22:20: White Blood Count 9.6, Red Blood Count 5.49, Hemoglobin 17.1, Hematocrit 50, Mean Corpuscular Volume 90, Mean Corpuscular Hemoglobin 31, Mean Corpuscular Hemoglobin Concent 35, Red Cell Distribution Width 13.3, Platelet Count 221, Mean Platelet Volume 10.2, Neutrophils (%) (Auto) 71, Lymphocytes (%) (Auto) 17 , Monocytes (%) (Auto) 11, Eosinophils (%) (Auto) 1, Basophils (%) (Auto) 1, Neutrophils # (Auto) 6.8, Lymphocytes # (Auto) 1.7, Monocytes # (Auto) 1.0, Eosinophils # (Auto) 0.1, Basophils # (Auto) 0.1, Prothrombin Time 25.5H, INR Comment 2.3H, Sodium Level 138, Potassium Level 4.6, Chloride Level 103, Carbon Dioxide Level 23, Anion Gap 12, Blood Urea Nitrogen 17, Creatinine 1.13, Estimat Glomerular Filtration Rate > 60, BUN/Creatinine Ratio 15, Glucose Level 117H, Calcium Level 9.5, Total Bilirubin 0.9, Aspartate Amino Transf (AST/SGOT) 31, Alanine Aminotransferase (ALT/SGPT) 26, Alkaline Phosphatase 59, Total Protein 7.8, Albumin 4.2 06/03/17 22:22: Urine Color YELLOW, Urine Clarity CLEAR, Urine pH 5, Urine Specific [place] 1.025H, Urine Protein NEGATIVE, Urine Glucose (UA) NEGATIVE, Urine Ketones NEGATIVE, Urine Nitrite NEGATIVE, Urine Bilirubin NEGATIVE, Urine Urobilinogen NORMAL, Urine Leukocyte Esterase 1+H, Urine RBC (Auto) 2+H, Urine RBC 0-2, Urine WBC RARE, Urine Crystals NONE, Urine Bacteria NEGATIVE, Urine Casts NONE, Urine Mucus SMALLH, Urine Culture Indicated NO 06/04/17 05:43: White Blood Count 6.7, Red Blood Count 4.94, Hemoglobin 15.3, Hematocrit 45, Mean Corpuscular Volume 91, Mean Corpuscular Hemoglobin 31, Mean Corpuscular Hemoglobin Concent 34, Red Cell Distribution Width 13.3, Platelet Count 197, Mean Platelet Volume 10.6H, Neutrophils (%) (Auto) 53, Lymphocytes (%) (Auto) 29 , Monocytes (%) (Auto) 17H, Eosinophils (%) (Auto) 1, Basophils (%) (Auto) 0, Neutrophils # (Auto) 3.5, Lymphocytes # (Auto) 2.0, Monocytes # (Auto) 1.1H, Eosinophils # (Auto) 0.1, Basophils # (Auto) 0.0, Sodium Level 138, Potassium Level 3.9, Chloride Level 108H, Carbon Dioxide Level 20L, Anion Gap 10, Blood Urea Nitrogen 16, Creatinine 0.99, Estimat Glomerular Filtration Rate > 60, BUN/ Creatinine Ratio 16, Glucose Level 109H, Calcium Level 8.7, Total Bilirubin 0.8 , Aspartate Amino Transf (AST/SGOT) 21, Alanine Aminotransferase (ALT/SGPT) 20, Alkaline Phosphatase 50, Total Protein 6.6, Albumin 3.5 Assessment/Plan Assessment/Plan Assessment/Plan left lower quadrant abdominal pain nausea small bowel obstruction anticoagulated-hold ng tube small bowel follow through today await results npo iv fluids Clinical Quality Measures DVT/VTE Risk/Contraindication: Risk Factor Score Per Nursin RFS Level Per Nursing on Admit: 4+=Very High ANDRZEJ ARREGUIN DO Jun 04, 2017 09:25
[2017-06-04 12:00] VITALS: BP 123/69
--- NOTE | 2017-06-04 12:52 | Diagnostic Imaging Report ---
INDICATION: Small bowel obstruction. TECHNIQUE: 120 mL of Gastrografin contrast and 120 mL of water were administered through the patient's indwelling nasogastric tube and serial radiographs of the abdomen were obtained. COMPARISON: Correlation is made with recent CT study from one day earlier. FINDINGS: Preliminary radiograph of the abdomen shows NG tube passing below the diaphragm. There are moderately gaseous-distended small bowel loops in the central abdomen. Gas is identified within the decompressed colon. Postop changes through the right hip are noted. Post contrast images demonstrate contrast within the stomach with prompt passage into the proximal small bowel loops which appear to be of normal caliber. There is fairly rapid progression of contrast into the mid small bowel loops which do demonstrate some moderate dilatation. Continued progression of contrast at the 1 hour and 1 hour and 30 minute films is seen. There does appear to be some decompressed distal small bowel loops, corresponding with the CT. Contrast does reach the right colon at approximately 2 to 2.5 hours. Terminal ileum is unremarkable. No definite obstructing lesion or focal transition point is visualized. IMPRESSION: There are moderately distended small bowel loops in the mid region with decompression distally, correlating with the CT findings one day earlier. Findings do remain suggestive of perhaps partial small bowel obstruction but no complete obstruction is seen, as contrast does pass into the right colon at approximately 2 to 2.5 hours. No obstructing lesion is visualized. Dictated by: Dictated on workstation # [id number]
[2017-06-04 16:38] VITALS: BP 115/70
[2017-06-04 20:16] VITALS: BP 123/65
[2017-06-04] MEDS ORDERED: LIDOCAINE 1% INJ 20 ML 20 ML VIAL INJ SCH (21:00)
[2017-06-05] VITALS: BP 112/58
[2017-06-05] MEDS: NS W/KCL 20 MEQ/L 1,000 ML IV SCH ×3 (02:25→18:01)
[2017-06-05 04:00] VITALS: BP 116/61
--- NOTE | 2017-06-05 07:05 | Progress Note (SOAP) ---
Subjective Date Seen by Provider: Jun 05, 2017 Time Seen by Provider: 06:45 Subjective/Events-last exam Patient was awake this morning upon making rounds. He does not appear to be in any distress. He reports his appetite may be a little bit improved. He had what he described as 3 loose stools yesterday and he has been passing gas. Objective Exam Vital Signs Date Time Temp Pulse Resp B/P (MAP) Pulse Ox O2 Delivery O2 Flow Rate FiO2 06/05/17 04:00 97.3 72 19 116/61 (79) 91 Room Air 06/05/17 00:00 97.1 58 19 112/58 (76) 91 06/04/17 20:16 98.6 60 16 123/65 (84) 94 06/04/17 16:38 97.5 60 16 115/70 (85) 96 Room Air 06/04/17 12:00 99.0 54 20 123/69 (87) 95 Room Air 06/04/17 08:00 99.5 60 18 108/67 (81) 98 Room Air I & O 06/05/17 06:59 Intake Total 1000 ml Output Total 1000 ml Balance 0 ml Capillary Refill : Less Than 3 Seconds General Appearance: No Apparent Distress Neck: Supple Respiratory: Lungs Clear Cardiovascular: Regular Rate, Rhythm Gastrointestinal: soft, other (bowel sounds returning) Assessment/Plan Assessment/Plan Assess & Plan/Chief Complaint 1. Bowel obstruction-mechanical versus ileus -Dr. Buck has been consult and has seen patient in the emergency department during the evening of June 03, 2017 -Plan is for small bowel follow-through this morning -We'll maintain nasogastric tube as of now. 06/05 -Patient with NG in place and flow has been slowing -will await surgery input regarding clamping of tube and giving liquids. 2. Hypertension history of -We'll reinstate his blood pressure regimen as his oral intake is allowed 3. Pulmonary embolism history of -Will place on Lovenox when surgery agrees Clinical Quality Measures Admission Status Admission Dx 1. Bowel obstruction-mechanical versus ileus -Dr. Buck has been consult and has seen patient in the emergency department during the evening of June 03, 2017 -Plan is for small bowel follow-through this morning -We'll maintain nasogastric tube as of now. 2. Hypertension history of -We'll reinstate his blood pressure regimen as his oral intake is allowed 3. Pulmonary embolism history of -Will place on Lovenox when surgery agrees DVT/VTE Risk/Contraindication: Risk Factor Score Per Nursin RFS Level Per Nursing on Admit: 4+=Very High JESSENIA ZEPEDA MD Jun 05, 2017 07:05
[2017-06-05 07:49] VITALS: BP 127/68
[2017-06-05] MEDS: PANTOPRAZOLE 40 MG/10 ML (PROTONIX) VIAL IV SCH (09:47)
--- NOTE | 2017-06-05 11:59 | Progress Note ---
Subjective Date Seen by Provider: Jun 05, 2017 Time Seen by Provider: 11:52 Subjective/Events-last exam patient doing well. He is passing flatus and his had 3 liquid bowel movements yesterday. His abdomen is less distended he states he is not having any pain now. He denies any nausea vomiting fever sweats chills shortness of breath or chest pain. Objective Exam Vital Signs Date Time Temp Pulse Resp B/P (MAP) Pulse Ox O2 Delivery O2 Flow Rate FiO2 06/05/17 07:49 98.1 75 18 127/68 (87) 92 Room Air 06/05/17 04:00 97.3 72 19 116/61 (79) 91 Room Air 06/05/17 00:00 97.1 58 19 112/58 (76) 91 06/04/17 20:16 98.6 60 16 123/65 (84) 94 06/04/17 16:38 97.5 60 16 115/70 (85) 96 Room Air 06/04/17 12:00 99.0 54 20 123/69 (87) 95 Room Air I & O 06/05/17 07:00 Intake Total 2000 ml Output Total 1700 ml Balance 300 ml Capillary Refill : Less Than 3 Seconds General Appearance: No Apparent Distress HEENT: Moist Mucous Membranes, Other (Currently nasogastric tube in place) Neck: Supple Respiratory: Lungs Clear Cardiovascular: Regular Rate, Rhythm Gastrointestinal: non tender, soft, other (reducible left inguinal hernia) Neurologic/Psychiatric: Alert, Oriented x3 Skin: Normal Color, Warm/Dry Lymphatic: No Adenopathy Assessment/Plan Assessment/Plan Assessment/Plan The patient with partial small bowel obstruction, left lower quadrant abdominal pain, left inguinal hernia, history of pulmonary embolism Patient has had some liquid bowel movements and passing flatus we will pull the NG tube out and started on clears and then advance as tolerates. Okay with restarting Lovenox Left inguinal hernia reducible could repair as outpatient left lower quadrant abdominal pain resolved Clinical Quality Measures DVT/VTE Risk/Contraindication: Risk Factor Score Per Nursin RFS Level Per Nursing on Admit: 4+=Very High ANDRZEJ ARREGUIN DO Jun 05, 2017 11:59
[2017-06-05 15:56] VITALS: BP 140/74
[2017-06-05] MEDS ORDERED: warFARin 3 MG (COUMADIN) TAB PO SCH (18:00)
[2017-06-06] VITALS: BP 132/71
[2017-06-06] MEDS: NS W/KCL 20 MEQ/L 1,000 ML IV SCH ×2 (02:25→10:05)
[2017-06-06 07:49] VITALS: BP 131/70
[2017-06-06] MEDS: PANTOPRAZOLE 40 MG/10 ML (PROTONIX) VIAL IV SCH (09:43)
--- NOTE | 2017-06-06 12:37 | Discharge Summary ---
Diagnosis/Chief Complaint Date of Admission Jun 03, 2017 at 22:42 Date of Discharge June 06, 2017 Discharge Date: Jun 06, 2017 Discharge Time: 12:30 Admission Diagnosis Admission Diagnosis 1. Abdominal pain with bowel obstruction Discharge Diagnosis 1. Small bowel obstruction ileus 2. Hypertension 3. Long-term use of anticoagulants due to history of pulmonary embolism 4. History of venous thrombosis Reason Hospital Visit 66-year-old male presents to [facility] emergency department during the evening of June 03, 2017 with generalized abdominal discomfort. He was seen in the office on June 03 and he stated he just didn't feel well. At that point he didn't mention any abdominal complaints and does report he had bowel movement. He did not have any symptoms of fever, sore throat, earache, or cough. He apparently ate spaghetti for his evening meal on June 03, 2017 and had noted more intense pain in the left lower portion of his abdomen. This prompted him to come to [facility] emergency department. He is currently taking warfarin 3 mg daily for history of pulmonary embolism. Discharge Summary Hospital Course Hospital Course Patient was admitted on June 03, 2017 with small bowel obstruction suspected. Patient was admitted through the emergency department. At that time he had nasogastric tube placed to decompress his small bowel obstruction He was maintained on IV fluids He was kept nothing by mouth for the initial [address] Buck surgery was also consulted and seen patient initially in the emergency room and at that time patient was deemed nonsurgical. On June 05, 2017 nasogastric tube remained in place. He had a small bowel follow-through which revealed moderately distended small bowel loops in the mid region with decompression distally. At that time his findings were consistent with partial small bowel obstruction but no complete obstruction seen. There was no obstructing lesion visualized. Ultimately the nasogastric tube was removedin the p.m. of June 05 and he was allowed to have clear liquid diet. By the morning of June 06 he was with increase appetite and he was allowed to have soft diet. Patient tolerated the diet and he was noted to be passing gas as well as having bowel movement on the day of June 06. Patient was felt ready for dismissal. Patient was informed of his small bowel obstruction due to ileus. Patient did not require surgical intervention. As a side note he was found to have an inguinal hernia by surgery and he will be set up to have this repaired as outpatient. Labs Procedures Dr Buck, surgery Discharge Physical Examination Allergies: Coded Allergies: NKANo Known Allergies (Verified Allergy, Mild, 04/02/06) Vitals & I&Os General Appearance: No Acute Distress Respiratory: Clear to Auscultation Cardiovascular: Regular Rate Abdominal: Normal Bowel Sounds, Soft Skin: No Rashes Discharge Home Medications Reviewed and agree with Discharge Medication list on patient's Discharge Instruction sheet Instructions to Patient/Family Please see electronic discharge instructions given to patient. Clinical Quality Measures DVT/VTE Risk/Contraindication: Risk Factor Score Per Nursin RFS Level Per Nursing on Admit: 4+=Very High JESSENIA ZEPEDA MD Jun 06, 2017 12:37
--- NOTE | 2017-06-06 13:53 | Progress Note ---
Subjective Date Seen by Provider: Jun 06, 2017 Time Seen by Provider: 09:31 Subjective/Events-last exam patient doing well. Tolerating diet. abdomianl pain resolved passing flatus and bm. Denies n/v fever sweats chills shortness of breath or chest pain. Objective Exam Vital Signs Date Time Temp Pulse Resp B/P (MAP) Pulse Ox O2 Delivery O2 Flow Rate FiO2 06/06/17 12:48 06/06/17 07:49 98.4 57 20 131/70 (90) 92 Room Air 06/06/17 00:00 98.2 54 18 132/71 (91) 95 Room Air 06/05/17 15:56 97.2 64 14 140/74 (96) 96 I & O 06/06/17 07:00 Intake Total 2990 ml Output Total 650 ml Balance 2340 ml Capillary Refill : Less Than 3 Seconds General Appearance: No Apparent Distress HEENT: PERRL/EOMI, Moist Mucous Membranes, Other (Currently nasogastric tube in place) Neck: Non Tender, Supple Respiratory: No Accessory Muscle Use, No Respiratory Distress Cardiovascular: Regular Rate, Rhythm Gastrointestinal: non tender, soft, other (reducible left inguinal hernia) Neurologic/Psychiatric: Alert, Oriented x3 Skin: Normal Color, Warm/Dry Lymphatic: No Adenopathy Assessment/Plan Assessment/Plan Assessment/Plan The patient with partial small bowel obstruction, left lower quadrant abdominal pain, left inguinal hernia, history of pulmonary embolism tolerating diet advance diet can fix hernia as outpatient no surgical intervention okay to [place] home from surgical standpoint. Clinical Quality Measures DVT/VTE Risk/Contraindication: Risk Factor Score Per Nursin RFS Level Per Nursing on Admit: 4+=Very High ANDRZEJ ARREGUIN DO Jun 06, 2017 13:53
== END 2017-06-06 12:48 | disposition home or self-care (01) | DRG 390 ==
LOC: EDUNIT# 21:42 → ER 21:43 → 4TH 22:42
PROVIDERS: ADMIT Family Medicine; ATTEND Family Medicine
PROC: 0D9670Z Drainage of Stomach with Drainage Device, Via Natural or Artificial Opening (ICD-10-PCS; principal; 2017-06-03)
DX: K56.699 Other intestinal obstruction unspecified as to partial versus complete obstruction (principal); I10 Essential (primary) hypertension; M19.91 Primary osteoarthritis, unspecified site; Z85.828 Personal history of other malignant neoplasm of skin; Z79.01 Long term (current) use of anticoagulants; Z85.040 Personal history of malignant carcinoid tumor of rectum; Z86.718 Personal history of other venous thrombosis and embolism; Z86.711 Personal history of pulmonary embolism
CPT/HCPCS: 36415; 71045; 74176; 74250; 80053; 81000; 85025; 85610

== ENCOUNTER 2017-07-08 05:34 | Outpatient (CLI) | payer MEDICARE, OTHER ==
[~2017-07-08] VITALS: Ht 188 cm; Wt 99.3 kg
[~2017-07-08 05:34] MED LIST changes: +WARF3TAB56 PO
[2017-07-10] MEDS ORDERED: DOCU-143 PO (09:13)
[2017-07-10] MEDS ORDERED: ACHD5005 PO (09:13)
== END 2017-07-08 10:18 ==
LOC: PREOP 05:34
PROVIDERS: ATTEND Surgery
DX: Z01.818 Encounter for other preprocedural examination (principal)

== ENCOUNTER 2017-07-10 06:15 | Day surgery (SDC) | payer MEDICARE, OTHER ==
[~2017-07-10] VITALS: Ht 188 cm; Wt 99.3 kg
--- OUTSIDE RECORDS SUMMARY | 2017-07-10 06:19 | XMS REPORT | Continuity of Care Document ---
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 06/06/2017 JESSENIA ZEPEDA MD, Ot Z85.040 PERSONAL HISTORY OF MALIGNANT CARCINOID 06/06/2017 JESSENIA ZEPEDA MD, Ot Z85.828 PERSONAL HISTORY OF OTHER MALIGNANT NEOP 06/06/2017 JESSENIA ZEPEDA MD, Ot Z86.711 PERSONAL HISTORY OF PULMONARY EMBOLISM 06/06/2017 JESSENIA ZEPEDA MD, Ot Z86.718 PERSONAL HISTORY OF OTHER VENOUS THROMBO Procedures Code Description Performed By Performed On [id number] DRAINAGE OF STOMACH WITH DRAINAGE DEVICE 06/03/2017 Results Test Result Range Complete blood count [...] urinalysis with reflex to culture NO NRG Complete blood count (CBC) with automated white blood cell (WBC) differential - 06/04/17 05:43 Blood leukocytes automated count (number/volume) 6.7 10*3/uL 4.3-11.0 Blood erythrocytes automated count (number/volume) 4.94 10*6/uL 4.35-5.85 Venous blood hemoglobin measurement (mass/volume) 15.3 g/dL 13.3-17.7 Blood hematocrit (volume fraction) 45 % 40-54 Automated erythrocyte mean corpuscular volume 91 [foz_us] 80-99 Automated erythrocyte mean corpuscular hemoglobin (mass per erythrocyte) 31 pg 25-34 Automated erythrocyte mean corpuscular hemoglobin concentration measurement ( mass/volume) 34 g/dL 32-36 Automated erythrocyte distribution width ratio 13.3 % 10.0-14.5 Automated blood platelet count (count/volume) 197 10*3/uL 130-400 Automated blood platelet mean volume measurement 10.6 [foz_us] 7.4-10.4 Automated blood neutrophils/100 leukocytes 53 % 42-75 Automated blood lymphocytes/100 leukocytes 29 % 12-44 Blood monocytes/100 leukocytes 17 % 0-12 Automated blood eosinophils/100 leukocytes 1 % 0-10 Automated blood basophils/100 leukocytes 0 % 0-10 Blood neutrophils automated count (number/volume) 3.5 10*3 1.8-7.8 Blood lymphocytes automated count (number/volume) 2.0 10*3 1.0-4.0 Blood monocytes automated count (number/volume) 1.1 10*3 0.0-1.0 Automated eosinophil count 0.1 10*3/uL 0.0-0.3 Automated blood basophil count (count/volume) 0.0 10*3/uL 0.0-0.1 Comprehensive metabolic panel - 06/04/17 05:43 Serum or plasma sodium measurement (moles/volume) 138 mmol/L 135-145 Serum or plasma potassium measurement (moles/volume) 3.9 mmol/L 3.6-5.0 Serum or plasma chloride measurement (moles/volume) 108 mmol/L 98-107 Carbon dioxide 20 mmol/L 21-32 Serum or plasma anion gap determination (moles/volume) 10 mmol/L 5-14 Serum or plasma urea nitrogen measurement (mass/volume) 16 mg/dL 7-18 Serum or plasma creatinine measurement (mass/volume) 0.99 mg/dL 0.60-1.30 Serum or plasma urea nitrogen/creatinine mass ratio 16 NRG Serum or plasma creatinine measurement with calculation of estimated glomerular filtration rate > NRG Serum or plasma glucose measurement (mass/volume) 109 mg/dL 70-105 Serum or plasma calcium measurement (mass/volume) 8.7 mg/dL 8.5-10.1 Serum or plasma total bilirubin measurement (mass/volume) 0.8 mg/dL 0.1-1.0 Serum or plasma alkaline phosphatase measurement (enzymatic activity/volume) 50 U/L 40-136 Serum or plasma aspartate aminotransferase measurement (enzymatic activity/ volume) 21 U/L 5-34 Serum or plasma alanine aminotransferase measurement (enzymatic activity/volume ) 20 U/L 0-55 Serum or plasma protein measurement (mass/volume) 6.6 g/dL 6.4-8.2 Serum or plasma albumin measurement (mass/volume) 3.5 g/dL 3.2-4.5 Encounters ACCT No. Visit Date/Time Discharge Status Pt. Type Provider Facility Loc./Unit Complaint [id number] 06/03/2017 22:42:00 06/06/2017 12:48:00 DIS Inpatient KATELYN HOLLAND, JESSENIA Perez [facility] 4TH SMALL BOWEL OBSTRUCTION [id number] 09/09/2016 07:10:00 09/09/2016 11:00:00 DIS Outpatient CARI MARQUIS MD [facility] ENDO SCREENING [id number] 09/06/2016 05:42:00 09/06/2016 08:46:00 DIS Outpatient CARI MARQUIS MD [facility] PREOP COLONSCOPY [id number] 06/06/2014 02:04:00 06/09/2014 10:30:00 DIS Inpatient YOANA WISE MD [facility] SURGICAL MULTIPLE PULMONARY EMBOLISM [id number] 07/10/2017 08:00:00 PEN Preadmit ANDRZEJ ARREGUIN DO [facility] SDC LEFT INGUINAL HERNIA [id number] 07/08/2017 05:34:00 ACT Outpatient ANDRZEJ ARREGUIN DO [facility] PREOP LEFT INGUINAL HERNIA
[2017-07-10 06:40] VITALS: BP 139/84
[2017-07-10] MEDS ORDERED: ceFAZolin 2 GM IV Premixed 50 ML IV ONE (06:45)
[2017-07-10] MEDS: LACTATED RINGERS 1,000 ML IV PRN ×2 (06:49→08:33)
[2017-07-10] MEDS ORDERED: MIDAZOLAM 2 MG/2 ML (VERSED) VIAL ONE (06:52)
[2017-07-10] MEDS ORDERED: SEVOFLURANE (ULTANE) 15 ML INHAL SOLN ONE ×5 (06:52→08:46)
[2017-07-10] MEDS ORDERED: ONDANSETRON 4 MG/2 ML (SDV) Z0FRAN ONE (06:52)
[2017-07-10] MEDS ORDERED: GLYCOPYRROLATE 0.2 MG/ML (ROBINUL) 2 ML VIAL ONE ×2 (06:52→09:06)
[2017-07-10] MEDS ORDERED: NEOSTIGMINE 1 MG/ML 5 ML SYRINGE ONE (06:52)
[2017-07-10] MEDS ORDERED: proPOfol 200 MG/20 ML (DIPRIVAN) VIAL IV ONE (06:52)
[2017-07-10] MEDS ORDERED: fentaNYL INJECTION 100 MCG/2 ML AMP ONE ×2 (06:52→08:40)
[2017-07-10] MEDS ORDERED: ROCURONIUM 10 MG/ML 5 ML SYRINGE IV ONE (06:52)
[2017-07-10] MEDS ORDERED: LIDOCAINE PF 2% 5 ML (XYLOCAINE) VIAL ONE (06:52)
[2017-07-10] MEDS ORDERED: DEXAMETHASONE 10 MG/ML (DECADRON) 1 ML VIAL ONE (06:52)
[2017-07-10] MEDS ORDERED: CATHETER FLUSH 10 ML SYR IV PRN (07:00)
[2017-07-10] MEDS ORDERED: BUPIVACAINE 0.5% 30 ML (SENSORCAINE) VIAL ONE (07:21)
[2017-07-10] MEDS ORDERED: LIDOCAINE 1% INJ 20 ML 20 ML VIAL ONE (07:21)
--- NOTE | 2017-07-10 08:06 | Progress Note-Pre Operative ---
Pre-Operative Progress Note H&P Reviewed The H&P was reviewed, patient examined and no changes noted. Date Seen by Provider: July 10, 2017 Time Seen by Provider: 08:00 Date H&P Reviewed: July 10, 2017 Time H&P Reviewed: 08:00 Pre-Operative Diagnosis: left inguinal hernia ANDRZEJ ARREGUIN DO July 10, 2017 08:06
[2017-07-10] MEDS ORDERED: LACTATED RINGERS 1,000 ML IV ONE (08:28)
[2017-07-10] MEDS ORDERED: ACHD5005 PO (09:13)
[2017-07-10] MEDS ORDERED: DOCU-143 PO (09:13)
[2017-07-10] MEDS ORDERED: HYDROcodone/APAP 5 MG/325 MG (LORTAB) TAB PO PRN (09:15)
--- NOTE | 2017-07-10 09:15 | Discharge Inst-Simple/Standard ---
Discharge Inst-Standard Discharge Medications New, Converted or Re-Newed RX: RX on Chart Patient Instructions/Follow Up Plan of Care/Instructions/FU: 2-3 weeks Heber Activity as Tolerated: No Discharge Diet: Regular Diet Other Inst to Patient Follow up Appt: Make appointment for 2-3 week. Instructions: No lifting greater than 10 pounds. No strenuous activity. May shower in 24 hours, no tub bath or soaking. Use incentive spirometer at home as directed. No Smoking Skin/Wound Care: You have special glue over incision it will fall off on its own. Symptoms to Report: Appetite Changes, Extremity Discoloration, Numbness/Tingling, Swelling Increased , Bleeding Excessive, Eyesight Changes, Pain Increased, Urine Color Change, Constipation(Persistent), Fever over 101 degree F, Pain/Pressure in chest, Urinating Difficulty, Cough Up/Vomit Blood, Heart Beat Irreg/Pounding, Pain/ Pressure in jaw, Vaginal Bleeding Increase, Cramps in feet or legs, Lightheadedness, Pain/Pressure in shoulder, Diarrhea(Persistent), Memory Changes Suddenly, Questions/Concerns, Weight gain consecutive days, Dizziness/ Fainting, Nausea/Vomiting, Shortness of Breath, Weight gain over 2 pounds If questions or concerns contact your physician Or seek help at emergency department. ANDRZEJ ARREGUIN DO July 10, 2017 09:15
[2017-07-10] MEDS ORDERED: ONDANSETRON 4 MG/2 ML (SDV) Z0FRAN IVP PRN (09:30)
[2017-07-10] MEDS ORDERED: MEPERIDINE (DEMEROL) INJ 50 MG/ML IVP PRN (09:30)
[2017-07-10] MEDS ORDERED: morphine INJ 10 MG/ML 1ML (SYR OR VIAL) IVP PRN (09:30)
--- NOTE | 2017-07-10 09:59 | Anesthesia-General Post-Op ---
General Patient Condition Mental Status/LOC: Same as Preop Cardiovascular: Satisfactory Nausea/Vomiting: Absent Respiratory: Satisfactory Pain: Controlled Complications: Absent Post Op Complications Complications None Follow Up Care/Instructions Patient Instructions None needed. Anesthesia/Patient Condition Patient Condition Patient is doing well, no complaints, stable vital signs, no apparent adverse anesthesia problems. No complications reported per nursing. REBECA OLIVAREZ CRNA July 10, 2017 09:59
[2017-07-10 10:20] VITALS: BP 154/79
--- NOTE | 2017-07-10 10:42 | Progress Note-Post Operative ---
Post-Operative Progess Note Surgeon (s)/Coil Finisher (s) Surgeon ANDRZEJ ARREGUIN DO Coil Finisher: Dr. Donahue Pre-Operative Diagnosis left inguinal hernia Post-Operative Diagnosis direct left inguinal hernia Procedure & Operative Findings Date of Procedure 07/10/17 Procedure Performed/Findings left inguinal hernia repair Anesthesia Type general Estimated Blood Loss Estimated blood loss (mL): minimal Specimens/Packing Specimens Removed na ANDRZEJ ARREGUIN DO July 10, 2017 10:42 am
[2017-07-10 10:50] VITALS: BP 189/101
[2017-07-10 11:20] VITALS: BP 167/90
[2017-07-10 11:28] VITALS: BP 167/90
--- NOTE | 2017-07-11 21:20 | OPERATIVE REPORT ---
DATE OF SERVICE: 07/10/2017 PREOPERATIVE DIAGNOSIS: Left inguinal hernia. POSTOPERATIVE DIAGNOSIS: Left direct inguinal hernia incarcerated. SURGEON: Andrzej Buck DO VOCATIONAL SCHOOL TEACHER: Dr. Donahue, assisted in retraction, dissection and closure. ANESTHESIA: General. ESTIMATED BLOOD LOSS: Minimal. COMPLICATIONS: None. INDICATIONS: The patient is a 66-year-old male who was discovered to have a left inguinal hernia. He had a previous small-bowel obstruction and he has had no previous abdominal surgeries at that time a left inguinal hernia was able to be reduced and the patient was able to be sent home. He is on anticoagulation, this was stopped and planned for elective repair. The patient was explained risks and benefits of procedure and wished to proceed with procedure. Consent was signed in the chart. DESCRIPTION OF PROCEDURE: The patient was taken to the operating suite, was prepped and draped in sterile fashion. Surgical pause was performed. Incision was made in the left lower quadrant. Cautery dissection was taken down to the external oblique, which was then opened up through the external ring. The spermatic cord was then dissected around and a Silt drain was placed around it and secured moving all the way for visualization. There was a large floor defect with a large amount of hernia contents present, but incarcerated through this area. The hernia contents had to be mobilized and reduced. Once this was reduced, transversalis fascia was then brought to the shelving edge using 0 Vicryl closing the defect. At this time, there was no indirect defect present. The ProGrip mesh was then secured to Latrell's ligament and then incorporated around the spermatic cord and placed under the external oblique. The great coverage was present. The wound was then irrigated with copious amounts of irrigation. The external oblique was then closed using 2-0 Vicryl in a running fashion, recreating the external ring. The subcutaneous tissues were then reapproximated using 3-0 Vicryl. Skin was then closed using 4-0 Monocryl in a running subcuticular fashion. The area was then washed and dried and Dermabond was placed over the incision. The patient tolerated procedure well without any complications, taken to recovery room in stable condition. Job ID: [id number] DocumentID: [id number] Dictated Date: 07/11/2017 11:45:51 Reservoir Engineering Advisor Date: 07/11/2017 21:19:55 Dictated By: ANDRZEJ BUCK DO [facility]
== END 2017-07-10 12:15 | disposition home or self-care (01) ==
LOC: SDC 06:15
PROVIDERS: ATTEND Surgery
DX: K40.90 Unilateral inguinal hernia, without obstruction or gangrene, not specified as recurrent (principal); I10 Essential (primary) hypertension; Z86.718 Personal history of other venous thrombosis and embolism; Z79.01 Long term (current) use of anticoagulants; Z79.899 Other long term (current) drug therapy
CPT/HCPCS: 87081; 94664

== ENCOUNTER 2018-10-01 05:36 | Outpatient (CLI) | payer MEDICARE, OTHER ==
[~2018-10-01] VITALS: Ht 188 cm; Wt 100.2 kg
[~2018-10-01 05:36] MED LIST changes: +ACHD5005 PO; +DOCU-143 PO
[2018-10-01] MEDS ORDERED: SAW1CAPS8 PO (12:12)
== END 2018-10-01 12:38 | disposition home or self-care (01) ==
LOC: PREOP 05:36
PROVIDERS: ATTEND Surgery
DX: Z01.818 Encounter for other preprocedural examination (principal)

== ENCOUNTER 2018-10-06 06:53 | Day surgery (SDC) | payer MEDICARE, OTHER ==
[2018-10-06] VITALS (8 sets, daily range): BP systolic 97–151; BP diastolic 60–84
[~2018-10-06] VITALS: Ht 188 cm; Wt 100.2 kg
[~2018-10-06 06:53] MED LIST changes: +SAW1CAPS8 PO
[2018-10-06] MEDS ORDERED: LACTATED RINGERS 1,000 ML IV ONE (06:55)
[2018-10-06] MEDS ORDERED: LACTATED RINGERS 1,000 ML IV STA (07:19)
[2018-10-06] MEDS ORDERED: PROPOFOL INJECTION 50 ML IV ONE (07:21)
--- NOTE | 2018-10-06 07:53 | Progress Note-Pre Operative ---
Pre-Operative Progress Note H&P Reviewed The H&P was reviewed, patient examined and no changes noted. Date Seen by Provider: Oct 06, 2018 Time Seen by Provider: 07:53 Date H&P Reviewed: Oct 06, 2018 Time H&P Reviewed: 07:53 Pre-Operative Diagnosis: history of polyps ANDRZEJ ARREGUIN DO Oct 06, 2018 07:53
--- NOTE | 2018-10-06 08:38 | Progress Note-Post Operative ---
Post-Operative Progess Note Surgeon (s)/Honing Machine Set Up Operator (s) Surgeon ANDRZEJ ARREGUIN DO Honing Machine Set Up Operator: na Pre-Operative Diagnosis history of polyps Post-Operative Diagnosis colon polyps, diverticulosis Procedure & Operative Findings Date of Procedure 10/06/18 Procedure Performed/Findings colonoscopy c hot bx polypectomy x 2 Anesthesia Type per physicist solid earth Estimated Blood Loss Estimated blood loss (mL): none Specimens/Packing Specimens Removed ascending colon polyps ANDRZEJ ARREGUIN DO Oct 06, 2018 08:38
--- NOTE | 2018-10-06 08:42 | Discharge Inst-Simple/Standard ---
Discharge Inst-Standard Patient Instructions/Follow Up Plan of Care/Instructions/FU: 2 weeks [place] Activity as Tolerated: Yes Discharge Diet: Regular Diet (high fiber) ANDRZEJ ARREGUIN DO Oct 06, 2018 08:42
--- NOTE | 2018-10-06 09:33 | NUR ---
TAKING PO FLUIDS WITHOUT PROBLEM, PASSING SOME FLATUS. ALERT, DENIES COMPLAINTS. REQUESTING DISMISSAL.
--- NOTE | 2018-10-06 12:08 | Anesthesia-General Post-Op ---
MAC Patient Condition Mental Status/LOC: Same as Preop Cardiovascular: Satisfactory Nausea/Vomiting: Absent Respiratory: Satisfactory Pain: Controlled Complications: Absent Post Op Complications Complications None Follow Up Care/Instructions Patient Instructions None needed. Anesthesiology Discharge Order Discharge Order Patient is doing well, no complaints, stable vital signs, no apparent adverse anesthesia problems. No complications reported per nursing. CHIP MOSQUERA CRNA Oct 06, 2018 12:08
--- NOTE | 2018-10-06 13:26 | OPERATIVE REPORT ---
DATE OF SERVICE: 10/06/2018 PREOPERATIVE DIAGNOSIS: History of polyps. POSTOPERATIVE DIAGNOSES: Colon polyps and diverticulosis. PROCEDURE PERFORMED : Colonoscopy with hot biopsy polypectomy x2, ascending colon polyps. SURGEON: Andrzej Buck DO ANESTHESIA: Per AXLE BEARING POLISHER. ESTIMATED BLOOD LOSS: None. COMPLICATIONS: None. INDICATIONS: The patient is a 67-year-old male with a history of colon polyps. He understands risks and benefits of procedure and wished to proceed with procedure. Consent was signed in the chart. DESCRIPTION OF PROCEDURE: The patient was taken to the endoscopy suite, placed in left lateral recumbent position. Timeout was performed. Digital rectal exam was performed. There were no palpable polyps, masses or ulcerations. Scope was inserted in the rectum, advanced all the way to the cecum with minimal difficulty. Prep was adequate. Scope was then slowly retracted back. There were no polyps, masses or ulcerations in the cecum. In the ascending colon, there were 2 small polyps, which hot biopsy polypectomies were performed. Scope was continuously retracted back. No polyps, masses or ulcerations within the remainder of the ascending, transverse, descending and sigmoid colon. Through the sigmoid colon, moderate amount of diverticulosis present. Scope was continuously retracted back into the rectum where it was also retroflexed noting no other pathology. Scope was returned to its normal position, slowly withdrawn until completely removed, noting no other pathology. The patient tolerated procedure well without any complications, taken to recovery room in stable condition. RECOMMENDATIONS: The patient will need repeat colonoscopy in 5 years. Any issues before that be seen at that time. The patient recommended high fiber diet. The patient will follow up on pathology in 2 weeks in the office. Job ID: [id number] DocumentID: [id number] Dictated Date: 10/06/2018 08:46:11 Pie Filling Mixer Date: 10/06/2018 13:25:57 Dictated By: ANDRZEJ BUCK DO
== END 2018-10-06 09:33 | disposition home or self-care (01) ==
LOC: ENDO 06:53
PROVIDERS: ATTEND Surgery
DX: Z12.11 Encounter for screening for malignant neoplasm of colon (principal); D12.2 Benign neoplasm of ascending colon; K57.30 Diverticulosis of large intestine without perforation or abscess without bleeding; I10 Essential (primary) hypertension; I47.2 Ventricular tachycardia; Z79.01 Long term (current) use of anticoagulants; Z87.891 Personal history of nicotine dependence; Z79.899 Other long term (current) drug therapy; Z80.9 Family history of malignant neoplasm, unspecified; Z83.6 Family history of other diseases of the respiratory system; Z82.5 Family history of asthma and other chronic lower respiratory diseases